=== PATIENT | male | born 1945 | race Caucasian/White ===

== ENCOUNTER 2020-07-20 09:10 | Outpatient (REF) | payer MEDICARE, SELFPAY ==
--- NOTE | 2020-07-20 11:01 | MHC.AU.P13 ---
Adult Audiological Evaluation Date of Visit: 07/20/20 Reason for Appointment: Audiological evaluation due to decrease in hearing. Mr. Pereyra reports that he has been having more difficulty hearing in background noise, such as at his water aerobics classes, in restaurants, and gymnasiums. He notes that he often doesn't hear his and his notes that the radio in his car is too loud. Does patient feel they have a hearing loss?: Yes If Yes, Which Ear?: Both Ears Has hearing been tested previously?: Yes Previous Hearing Test Results: Results not available to be reviewed today. He notes that he was told he had a high-frequency hearing loss but did not need hearing aids. Hearing Handicap Inventory HHIE SCORE: 10 Based on HHIE score, patient has: Mild to moderate perceived hearing handicap Ear History: Family History of Hearing Loss?: Yes: Father had hearing loss History of occupational noise exposure?: Yes: [employer] line [employer], exposed to jet engine noise History: History: Yes Branch: [employer] Years in : 4-8 Years Medical History: Medical History: Cancer, Measles, Mumps, Thyroid Disease Medical History: Has had Thryroid, prostate, and skin cancer, all of which were removed surgically and did not require chemo or radiation. Medication List: Atorvastatin 80 mg daily, furosemide 20 mg daily, levothyroxine 125 mg daily, metformin HCL 1000 mg twice daily, carvedilol 25 mg twice daily, amlodipine besylate 10 mg daily, Bree low dose 1 tablet daily, Flaxseed oil 1 tablet daily, one adult vitamin, citalopram HBR 10 mg daily, Entresto 49-51 mg twice daily, magnesium oxide 400 mg daily Otoscopy: Right Ear: Unremarkable Left Ear: Unremarkable Tympanometry: Right Ear: Normal Middle Ear System (Type A) Left Ear: Normal Middle Ear System (Type A) Hearing Evaluation: Transducer(s) Used: Insert Earphones, Bone Conduction Method: Conventional Audiometry Stimuli Used: Pure Tones Right Ear: Description of Hearing: Normal hearing from 250-2000 Hz, sloping to a mild to severe sensorineural hearing loss from 3277-0184 Hz. Left Ear: Description of Hearing: Normal hearing from 250-3000 Hz, sloping to a moderately severe to severe sensorineural hearing loss from 0449-0425 Hz. Speech Recognition Threshold (SRT): Method Used: Monitored Live Voice Stimuli Used: Spondee Words Right Ear: 15 dBHL Left Ear: 5 dBHL Word Discrimination: Method: Monitored Live Voice Word Lists Used: NU-6 Right Ear: 96% at 70 dBHL Left Ear: 100% at 70 dBHL QuickSIN: 5 dB mild SNR loss, presented at 70 dBHL binaurally. Recommendations: Recommendations: Audiological re-evaluation in one year. Recommendations (Other): Mr. Pereyra is considered a borderline candidate for amplification. He may notice some benefit from hearing aids, but at this point it is unlikely that he'd perceive significant benefit from use of hearing aids. Communication strategies were discussed. Diagnosis: Primary Diagnosis: H90.3 Bilateral Sensorineural Hearing Loss Services Performed: Services Performed: Comprehensive Audiological Evaluation (CPT 61913) Tympanometry (CPT 20978) Unlisted Otorhinolaryngological Service or Procedure (CPT 33856) Signature: Provider: Bay Medina, CCC-A
== END 2020-07-20 09:11 | disposition home or self-care (01) ==
LOC: HO.SH 09:10
PROVIDERS: Visit Provider Internal Medicine
DX: H90.3 Sensorineural hearing loss, bilateral (principal)
CPT/HCPCS: 92557; 92567; 92700

== ENCOUNTER → 2021-05-19 09:09 | Outpatient (REF) | payer MEDICARE, SELFPAY | LOC: HO.SL 09:09 | PROVIDERS: Visit Provider Internal Medicine | DX: G47.33 Obstructive sleep apnea (adult) (pediatric) (principal) | CPT/HCPCS: 95806 ==

== ENCOUNTER → 2021-06-01 14:59 | Outpatient (BNVA) | payer MEDICARE, SELFPAY | PROVIDERS: PCP Internal Medicine; Visit Provider Internal Medicine | DX: G47.33 Obstructive sleep apnea (adult) (pediatric) (principal); G47.34 Idiopathic sleep related nonobstructive alveolar hypoventilation; E66.9 Obesity, unspecified; Z99.89 Dependence on other enabling machines and devices | CPT/HCPCS: 99202 ==

== ENCOUNTER 2022-11-09 08:37 | Outpatient (REF) | payer OTHER, SELFPAY ==
--- NOTE | ~2022-11-09 | CT_ITS ---
EXAMINATION: CT ABDOMEN AND PELVIS WITHOUT CONTRAST CLINICAL INFORMATION: Abdominal wall hernia. COMPARISON: 11/13/2008. TECHNIQUE: Multidetector volumetric imaging was performed from the superior aspect of the liver through the pubic symphysis. Sagittal and coronal reformatted images were obtained on the technologist's workstation. This CT examination was performed using dose optimization techniques as appropriate, variously including the following: *Automated exposure control *Adjustment of mA and/or kV according to patient size (this includes techniques or standardized protocols for targeted exams where dose is matched to indication/reason for exam; i.e. extremities or head) *Use of iterative reconstruction technique DLP: 872 mGy-cm FINDINGS: LUNG BASES: No suspicious lung nodules. Mild bibasilar atelectasis or scarring.. LIVER, GALLBLADDER, AND BILIARY TREE: The liver is normal in size, shape, and attenuation. No focal hepatic lesion or biliary ductal dilatation is present. Cholelithiasis. PANCREAS: No discrete pancreatic mass. No ductal dilatation. SPLEEN: Normal. ADRENAL GLANDS: No adrenal mass. KIDNEYS AND URETERS: 1.3 x 0.9 cm 350 HU developing staghorn calculus in the lower pole of the right kidney. Two 8 mm nonobstructing 500 HU calculi in the mid right kidney. 3 mm nonobstructing calculus in the lower right kidney. There is moderate hydronephrosis which appears related to a UPJ obstruction. There is no calculus at the level of obstruction. No hydronephrosis or nephrolithiasis on the left. BLADDER: Decompressed. GASTROINTESTINAL TRACT: There is a supraumbilical midline ventral hernia containing a knuckle of small bowel without evidence of obstruction. The small bowel is normal in caliber. The appendix is normal. The large bowel is normal with moderate diverticulosis. No evidence of acute diverticulitis. ABDOMINAL WALL: Supraumbilical ventral hernia containing small bowel without evidence of obstruction. The neck of the hernia is wide measuring 4.5 cm x 2.4 cm. The hernia sac measures 6 x 2 x 5.5 cm. No inflammatory stranding. The previously seen umbilical hernia has been repaired. LYMPH NODES: There are new prominent mesenteric lymph nodes measuring up to 1.6 cm in short axis dimension. There are new retroperitoneal, external bilateral iliac, and bilateral inguinal adenopathy measuring up to 2.0 cm. VASCULAR: No aortic aneurysm. Moderate aortoiliac atherosclerosis. PELVIC VISCERA: The prostate has been removed. There is bilateral pelvic sidewall lymph node dissection. OSSEOUS STRUCTURES: Degenerative changes in the spine. No suspicious mass. CT/CT abdomen pelvis wo IV con IMPRESSION: New mesenteric, retroperitoneal, bilateral external iliac, and bilateral inguinal lymphadenopathy. Metastatic disease are leading differential diagnoses. Supraumbilical ventral hernia containing small bowel without evidence of obstruction. Repaired umbilical hernia. New moderate right hydronephrosis with particular dilatation of the renal pelvis consistent with a UPJ obstruction. No discrete obstructing lesion is seen. Multiple nonobstructing right renal calculi. Fleischner guidelines were followed.
[2022-11-09] MEDS: Barium Sulfate Oral (Berry) 450 ML ORAL.SUSP 900 ML PO (11:22)
== END 2022-11-09 08:38 | disposition home or self-care (01) ==
LOC: HO.CT 08:37
PROVIDERS: PCP Internal Medicine; Visit Provider Internal Medicine
DX: K46.9 Unspecified abdominal hernia without obstruction or gangrene (principal)
CPT/HCPCS: 74176

== ENCOUNTER → 2023-01-08 09:01 | Outpatient (BNVA) | payer OTHER, SELFPAY | PROVIDERS: PCP Internal Medicine; Visit Provider Internal Medicine ==

== ENCOUNTER 2023-11-21 10:05 | Outpatient (AMB) | payer OTHER, SELFPAY ==
--- NOTE | 2023-11-21 10:09 | A.OFFVIS_ITS ---
Vital Signs 11/21/23 10:10 Height 5 ft 9.5 in Weight 225 lb 15.581 oz BMI 32.9 BP 110/60 Blood Pressure Location Lt brachial Position Sitting Pulse 68 Pulse Source Pulse Oximeter Pulse Oximetry (%) 95 Oxygen Delivery Method Room Air Intake Visit Reasons: sleep apnea Intake Note: pt is here for yearly follow up of PANTERA and doing well, all health is doing well. Club Room Attendant Required: No Allergies No Known Allergies Allergy (Verified 11/21/23 10:22) Medication List - Last Reconciled 11/21/23 by Enrique Blankenship MD amiodarone 100 mg PO BID amlodipine 10 mg PO DAILY apixaban (Eliquis) 5 mg PO BID aspirin (Adult Aspirin Regimen) 81 mg PO DAILY atorvastatin 80 mg PO BEDTIME carvedilol 25 mg PO BID citalopram 10 mg PO DAILY flaxseed oil 1,000 mg PO DAILY furosemide (Lasix) 20 mg PO DAILY levothyroxine 112 mcg PO DAILY magnesium 400 mg PO DAILY metformin 1,000 mg PO BID multivitamin (Daily Multi-Vitamin tablet) 1 tab PO DAILY sacubitril-valsartan 49-51 mg (Entresto) 1 tab PO BID sacubitril-valsartan 49-51 mg (Entresto) 1 tab PO BID Do you need a note to return to daycare/school/sports/work: No HPI HPI sleep apnea: Details: THIS 77 YEARS OLD VERY PLEASANT GENTLEMAN IS HERE FOR HIS YEARLY FOLLOW-UP FOR SLEEP APNEA. HE USES HIS CPAP WITH NASAL PILLOWS ON A REGULAR BASIS , EVERY NIGHT. IN ADDITION TO USING AT NIGHT SOMETIME HE USES DURING THE DAYTIME FOR 1 OR 2 HOURS IF HE FEELS TIRED. HIS CPAP DEVICE IS RELATIVELY NEW AND THERE IS NO ISSUE WITH THE MACHINE. FAR HIS WEIGHT IS CONCERNED , HE HAS MADE AN EXCELLENT PROGRESS, BY RESTRICTING HIS CALORIES AND DOING EXERCI.SE DURING THE PAST 1 YEAR HE HAS LOST ABOUT 22 LBs. [facility] Medical History Nocturnal hypoxemia PANTERA on CPAP Obesity (BMI 30-39.9) Social History Patient Tobacco Use Status: Former Tobacco user Tobacco use type: Cigar Years Smoked: 10 Review of Systems Const All systems reviewed & are unremarkable except as noted in HPI and below Eyes Reports no additional complaints ENT Reports no additional complaints Card Denies chest pain, Denies irregular heart rhythm, Denies leg edema, Denies dyspnea on exertion and Reports other (Has a Defibrillator device in place ) Resp Denies cough and Denies dyspnea on exertion GI Reports no additional complaints Reports no additional complaints Musc Reports no additional complaints Skin/Breast Reports system reviewed and no additional complaints, except as documented Neuro Reports no additional complaints Psych Reports no additional complaints Physical Exam Vital Signs: Last Vital Signs Pulse 68 11/21/23 10:10 BP 110/60 11/21/23 10:10 Pulse Ox 95 11/21/23 10:10 Oxygen Delivery Method Room Air 11/21/23 10:10 BMI result Body Mass Index 32.9 Const General: comfortable, no acute distress, alert and awake Orientation/consciousness: patient oriented x3 HEENT Head: Yes normal to inspection General nose exam: No nasal polyps present and No nasal discharge present Face and sinus: Yes sinuses nontender Mouth: oropharynx normal Throat: Yes posterior oropharynx normal Eyes General: appearance normal, both eyes and all related structures Neck Neck: Yes normal visual inspection, Yes no lymphadenopathy, Yes trachea midline and Yes no JVD Thyroid: Thyroid normal Chest Chest palpation & inspection: normal inspection of the chest (Has midline scar from previous cardiac surgery), normal palpation of entire chest wall and no tenderness Resp Effort & Inspection: normal respiratory effort Auscultation: clear to auscultation bilaterally, no crackles, no rales and no wheezes Cardio Palpation: normal PMI Rate: regular rate Rhythm: regular rhythm Heart sounds: no gallops and no murmurs GI Palpation (GI): Soft to palpation, nontender, No hepatosplenomegaly present and no masses Auscultation: normal bowel sounds Back/Spine/Pelvis Thoracic/Lumbar Spine: thoracic and lumbar spine normal to inspection Skin General skin exam: no rashes or lesions noted Neuro General: patient oriented x3 and no focal motor deficits Cranial nerves: Yes CN's II-XII intact bilaterally Extrem General: Yes normal to inspection, Yes no clubbing, cyanosis or edema and Yes no calf tenderness Psych Appearance: grossly normal and well kempt Speech and movement: Normal speech and movement present Results Reviewed Results Reviewed: COMPLIANCE REPORT FOR THE LAST 30 NIGHTS IS REVIEWED. HE HAS USED 30/ NIGHTS, 10.0% AVERAGE USE IT PER NIGHT AND DAY 11 HOURS 55 MINUTES. THIS IS BECAUSE ON SOME DAYS HE USES DURING THE DAYTIME WELL. THERE IS NO AIR LEAK . RESIDUAL AHI ONLY 0.3 Assessment & Plan Assessment & Plan (1) Obesity (BMI 30-39.9): Comment: PATIENT IS GROSSLY OVERWEIGHT , BUT DURING THE PAST 1 YEAR HE HAS MADE A GOOD PROGRESS. HE HAS LOST ABOUT 22 LB ACCORDING TO HOURS SCALE.AND HIS WEIGHT HAS NOT CHANGED OVER THE PAST MANY YEARS. Code(s): E66.9 - Obesity, unspecified Category: Medical Plan: COMMENDED FOR LOSING WEIGHT AND ADVISED TO CONTINUE WATCHING HIS DIET AND CONTINUE WALKING EVERY DAY. GOAL WOULD BE TO LOSE ANOTHER 25 LB BY NEXT YEAR. (2) PANTERA on CPAP: Comment: HE HAS A LONGSTANDING HISTORY OF OBSTRUCTIVE SLEEP APNEA AND HAS BEEN DEPENDENT ON CPAP THERAPY. HE DID GET HIS NEW CPAP DEVICE WITH NASAL PILLOWS WHICH IS MUCH MORE COMFORTABLE THAN BEFORE. HE HAS NO ISSUES WITH THE CURRENT APPARATUS. HE IS WELL VERSED WITH THE USE OF CPAP. Code(s): G47.33 - Obstructive sleep apnea (adult) (pediatric); Z99.89 - Dependence on other enabling machines and devices Category: Medical Plan: CONTINUE USING IT EVERY. NIGHT REGULARLY. CALL IF .THERE IS ANY PROBLEM. * PATIENT INDICATED THAT HE LIVES IN [place], AND WOULD LIKE TO FIND A PHYSICIAN IN [place] WHO WOULD FOLLOW HIM UP FOR HIS SLEEP APNEA PROBLEM. I TOLD HIM THAT EVEN HIS PCP COULD FOLLOW HIM UP FOR THE SAME. AND IF HE NEEDS TO COME ONLY ONCE A YEAR WILL BE GLAD TO CONTINUE PROVIDING THIS CARE. Coding Level of Care Code Est Pt Level 3 (23094) Diagnoses Obesity (BMI 30-39.9) E66.9 PANTERA on CPAP G47.33; Z99.89
[2023-11-21 10:10] VITALS: BP 110/60; PULSE 68; O2SAT 95; BMI 32.9
== END 2023-11-21 10:49 | disposition home or self-care (01) ==
PROVIDERS: PCP Internal Medicine; Visit Provider Internal Medicine
DX: E66.9 Obesity, unspecified (principal); G47.33 Obstructive sleep apnea (adult) (pediatric); Z99.89 Dependence on other enabling machines and devices
CPT/HCPCS: 99213

== ENCOUNTER → 2023-11-21 10:05 | Outpatient (BNVA) | payer OTHER, SELFPAY | PROVIDERS: PCP Internal Medicine; Visit Provider Internal Medicine ==

== ENCOUNTER 2024-11-10 10:20 | Outpatient (AMB) | payer OTHER, SELFPAY ==
--- NOTE | 2024-11-10 10:35 | A.OFFVIS_ITS ---
Vital Signs 11/10/24 10:36 Height 5 ft 9.5 in Weight 228 lb 2.855 oz BMI 33.2 BP 94/52 L Blood Pressure Location Lt brachial Position Sitting Pulse 67 Pulse Source Pulse Oximeter Pulse Oximetry (%) 93 Oxygen Delivery Method Room Air Intake Visit Reasons: sleep apnea Intake Note: pt is here for follow up and states he is feeling good, and the cpap, would like a decision on inspire. [facility] Required: No Allergies No Known Allergies Allergy (Verified 11/10/24 11:02) Medication List - Last Reconciled 11/10/24 by Enrique Blankenship MD amiodarone 100 mg PO BID amlodipine 10 mg PO DAILY apixaban (Eliquis) 5 mg PO BID aspirin (Adult Aspirin Regimen) 81 mg PO DAILY atorvastatin 80 mg PO BEDTIME carvedilol 25 mg PO BID citalopram 10 mg PO DAILY flaxseed oil 1,000 mg PO DAILY furosemide (Lasix) 20 mg PO DAILY levothyroxine 112 mcg PO DAILY magnesium 400 mg PO DAILY metformin 1,000 mg PO BID multivitamin (Daily Multi-Vitamin tablet) 1 tab PO DAILY sacubitril-valsartan 49-51 mg (Entresto) 1 tab PO BID sacubitril-valsartan 49-51 mg (Entresto) 1 tab PO BID Do you need a note to return to daycare/school/sports/work: No HPI HPI sleep apnea: Details: THIS 78 YEARS OLD GENTLEMAN IS A CASE OF OBSTRUCTIVE SLEEP APNEA AND HE COMES ONCE A YEAR FOR FOLLOW-UP. HE USES HIS CPAP WITH NASAL MASK, EVERY NIGHT, AND ALSO FOR A FEW HOURS IN THE AFTERNOON BECAUSE HE DOES HAVE TO TAKE A NAP EVERY AFTERNOON. HE HAS NO ISSUES OR DIFFICULTY WITH USING THE CPAP. REMAINS ACTIVE AND REFRESHED DURING THE DAYTIME. [facility] Medical History Nocturnal hypoxemia PANTERA on CPAP Obesity (BMI 30-39.9) Social History Patient Tobacco Use Status: Former Tobacco user Tobacco use type: Cigar Years Smoked: 10 Review of Systems Const All systems reviewed & are unremarkable except as noted in HPI and below Eyes Reports no additional complaints ENT Reports no additional complaints Card Denies chest pain, Denies irregular heart rhythm, Denies leg edema, Denies dyspnea on exertion and Reports other (Has a Defibrillator device in place ) Resp Denies cough and Denies dyspnea on exertion GI Reports no additional complaints Reports no additional complaints Musc Reports no additional complaints Skin/Breast Reports system reviewed and no additional complaints, except as documented Neuro Reports no additional complaints Psych Reports no additional complaints Physical Exam Vital Signs: Last Vital Signs Pulse 67 11/10/24 10:36 BP 94/52 L 11/10/24 10:36 Pulse Ox 93 11/10/24 10:36 Oxygen Delivery Method Room Air 11/10/24 10:36 BMI result Body Mass Index 33.2 Const General: comfortable, no acute distress, alert and awake Orientation/consciousness: patient oriented x3 HEENT Head: Yes normal to inspection General nose exam: No nasal polyps present and No nasal discharge present Face and sinus: Yes sinuses nontender Mouth: oropharynx normal Throat: Yes posterior oropharynx normal Eyes General: appearance normal, both eyes and all related structures Neck Neck: Yes normal visual inspection, Yes no lymphadenopathy, Yes trachea midline and Yes no JVD Thyroid: Thyroid normal Chest Chest palpation & inspection: normal inspection of the chest (Has midline scar from previous cardiac surgery), normal palpation of entire chest wall and no tenderness Resp Effort & Inspection: normal respiratory effort Auscultation: clear to auscultation bilaterally, no crackles, no rales and no wheezes Cardio Palpation: normal PMI Rate: regular rate Rhythm: regular rhythm Heart sounds: no gallops and no murmurs GI Palpation (GI): Soft to palpation, nontender, No hepatosplenomegaly present and no masses Auscultation: normal bowel sounds Back/Spine/Pelvis Thoracic/Lumbar Spine: thoracic and lumbar spine normal to inspection Skin General skin exam: no rashes or lesions noted Neuro General: patient oriented x3 and no focal motor deficits Cranial nerves: Yes CN's II-XII intact bilaterally Extrem General: Yes normal to inspection, Yes no clubbing, cyanosis or edema and Yes no calf tenderness Psych Appearance: grossly normal and well kempt Speech and movement: Normal speech and movement present Results Reviewed Results Reviewed: COMPLIANCE REPORT REVIEWED HE USES CPAP 100% OF THE NIGHTS. AVERAGE USAGE PER DAY AND NIGHT IS 12 HOURS 46 MINUTES. NO SIGNIFICANT AIR LEAK AND RESIDUAL AHI ONLY 0.4 Assessment & Plan Assessment & Plan (1) PANTERA on CPAP: Comment: HE HAS A LONGSTANDING HISTORY OF OBSTRUCTIVE SLEEP APNEA AND HAS BEEN DEPENDENT ON CPAP THERAPY. HE DID GET HIS NEW CPAP DEVICE WITH NASAL PILLOWS WHICH IS MUCH MORE COMFORTABLE THAN BEFORE. HE HAS NO ISSUES WITH THE CURRENT APPARATUS. HE IS WELL VERSED WITH THE USE OF CPAP. Code(s): G47.33 - Obstructive sleep apnea (adult) (pediatric); Z99.89 - Dependence on other enabling machines and devices Category: Medical Plan: COMMENDED FOR GOOD COMPLIANCE. I DISCUSSED WITH HIM ABOUT THE OPTION OF INSPIRE, AND TOLD HIM THAT HE SHOULD NOT EVEN THINK ABOUT THAT. HE USES HIS CPAP WITHOUT ANY DISCOMFORT AND EFFECTIVELY. SO THIS REMAINS THE BEST TREATMENT FOR HIM. (2) Nocturnal hypoxemia: Comment: NOCTURNAL HYPOXEMIA IS SECONDARY TO SLEEP-RELATED HYPOVENTILATION, AND SEEMS TO HAVE BEEN CORRECTED WITH THE USE OF CPAP. HE DOES NOT HAVE UNDERLYING CHRONIC PULMONARY DISEASE. Code(s): G47.34 - Idiopathic sleep related nonobstructive alveolar hypoventilation Category: Medical Plan: NO NEED OF WORRYING ABOUT NOCTURNAL HYPOXEMIA AND HE DOES NOT NEED ANY O2 SUPPLEMENTATION . Coding Level of Care Code Est Pt Level 3 (39644) Diagnoses PANTERA on CPAP G47.33; Z99.89 Nocturnal hypoxemia G47.34
[2024-11-10 10:36] VITALS: BP 94/52; PULSE 67; O2SAT 93; BMI 33.2
--- OUTSIDE RECORDS SUMMARY | 2024-11-10 12:02 | XMS_ITS | Encounter Summary ---
Author Organization [facility] Address [address] [place] [address] Care Team Providers Care [employer] E[employer] Helper Name Role Phone Veronica Ordonezmana Primary Care Provider [phone] Encounter Details Date Type Department Care Team (Late st Contact Info) Description 07/24/2024 Lab Requisition [facility] - Main Lab [address] [facility] [place] [address] Becky Lutz PA [address] [place] [address] Gross hematuria Social History Tobacco Use Types Packs/Day Years Used Date Smoking Tobacco: Former Smokeless Tobacco: Former Alcohol Use Standard Drinks/Week Comments Not Currently 0 (1 standard drink = 0.6 oz pur e alcohol) Housing Instability Answer Date Recorde d Are you worried that in the next 2 months you may not have stable housing? No 05/29/2024 Food Access & Nutrition Answer Date Rec orded Do you have access to a vari ety of food including fruits and vegetables? Yes 05/29/2024 Access to Healthcare Answer Date Record ed Within the last 3 months, ho w many times did you visit the emergency department for your medical care? 1 05/29/2024 Health Literacy Answer Date Recorded How often do you need to hav e someone help you when you read instructions, pamphlets, or other written material from your doctor or pharmacy? Never 05/29/2024 Caregiver: How often do you need to have someone help you when you read instructions, pamphlets, or other written material from your doctor or pharmacy? Not on file 05/29/2024 Financial Risk Answer Date Recorded How hard is it for you to pa y for the very basics like food, housing, medical care, and air conditioning / heating? Very hard 05/29/2024 Transportation Answer Date Recorded Has the lack of transportati on kept you from meetings, work, or from getting things needed for daily living? No Has the lack of transportati on kept you from medical appointments or from getting medications? No 05/29/2024 Social Isolation Answer Date Recorded How often do you feel lonely or isolated from th ose around you? Never 05/29/2024 Food Risk Answer Date Recorded Within the past 12 months we worried whether our food would run out before we got money to buy more. Never true 05/29/2024 Within the past 12 months th e food we bought just didn't last and we didn't have money to get more. Never true 05/29/2024 Dependent Care Answer Date Recorded Do you need help finding or paying for care for your loved ones. For example, children's lunchroom supervisor or elderly care for an older adult? No 05/29/2024 Education Answer Date Recorded Do you think completing more education or training, like finishing a GED, going to college, or learning a trade, would be helpful for you? No 05/29/2024 Employment and Income Answer Date Recor ded During the last four weeks, have you been actively looking for work? No 05/29/2024 Living Situation Answer Date Recorded What is your living situation? 1 07/29/2023 Sex and Gender Information Value Date Recorded Sex Assigned at Not on file Legal Sex Male 11:46 AM EST Gender Identity Not on file Sexual Orientation Not on file documented as of this encounter Plan of Treatment Upcoming Encounters Date Type Department Care Team (Late st Contact Info) Description 11/17/2024 9:00 AM EDT Appointment Radiology Department - [place] [address] [place] [address] [place] [address] 12/01/2024 10:15 AM EDT Clinical Support Internal Medicine - [address] [address] 12/25/2024 9:30 AM EDT Office Visit Endocrinology - [place] [address] [place] [address] Lyly Harvey MD [address] [place] [address] 01/22/2025 3:00 PM EDT Office Visit [facility] Cardiology [facility] [address] [place] [id number] Stuart Kennedy MD [address] [place] [address] 05/12/2025 1:00 PM EDT Ancillary Procedure [facility] [address] [place] [id number] documented as of this encounter Procedures Procedure Name Priority Date/Time Associated Diagnosis Comments AP OUTSIDE CONSULT Routine 07/15/2024 12 :00 AM EST Gross hematuria documented in this encounter Results * Anatomic pathology outside consult (07/15/2024 12:00 AM EST) Final Diagnosis A. Urine, Voided, ([id number]): Negative for high grade urothelial carcinoma. Results of [employer] fluorescence in situ hybridization (FISH) testing: CEP3: Normal CEP7: Normal CEP17: Normal LSI 9p21: Normal Interpretation: Normal profile Controls stained appropriately. Note: The results are intended as a screening device and should be interpreted in association with other clinical and pathological findings. 08/04/2024 3:49 PM EST [facility] Clinical Information Gross hematuria R31.0 Cytology/Urine FISH (now) 08/04/2024 3:49 PM [facility] Gross Description A. Urine, Voided, ([id number]): Received 1 TP (CYTO) 1 TP (FISH) 08/04/2024 3:49 PM EST [facility] Disclaimer Unless otherwise specified, all tissue is 10% NB formalin fixed and paraffin embedded. Technical pathology services provided by [facility] at [address], [place] [address] (CLIA #[id number]/Jyothi Luna MD, Flying Ii Instructor) 08/04/2024 3:49 PM EST [facility] Tissue Urine specimen from urethra / Unknown 07/15/2024 07/24/2024 3:00 PM EST us Becky BURGER LAB PATHOLOGY ORDERABLES Cynthia l Result [facility] [address] [place] [address], documented in this encounter Visit Diagnoses Diagnosis Gross hematuria Encounter for adjustment or management of cardiac device documented in this encounter Additional Health Concerns Infection Onset Date Last Indicated Resolved Time Influenza 10/30/2024 10/30/2024 Assessment Noted Time PHQ-9 Depression Total Score: 0 05/29/20 24 4:20 PM EST documented as of this encounter Care Teams [employer] Hel[employer] Relationship Specialty Start Date End Date Isis Ordonez DO [address] [place] [address] PCP - General 02/01/23 documented as of this encounter
--- OUTSIDE RECORDS SUMMARY | 2024-11-10 12:03 | XMS_ITS | Clinical Summary ---
Author Organization [place] [address] [address] [facility] Address [address] [facility] [place] [address] Phone Care Team Providers Care Project Accountant Name Role Phone Isis Ordonez DO Primary Care Provider [phone] Allergies No known active allergies Medications cyanocobalamin (VITAMIN B-12) 1,000 mcg/mL injection Inject 1 mL into the muscle every 30 days. Active magnesium oxide (MAG-OX) 400 mg (241.3 elemental magnesium) tablet Take 1 tablet by mouth daily. Active FLAXSEED OIL ORAL Take by mouth. Active multivit-min/iron /folic acid/K (ADULTS MULTIVITAMIN ORAL) Take by mouth. Active loratadine (CLARITIN) 10 mg tablet Take 1 tablet (10 mg total) by mouth 1 (one) time each day. 4 Active Calquence, acalabrutinib mal, 100 mg tablet Take 1 tablet (100 mg total) by mouth 2 (two) times a day. 4 Active amiodarone (PACERONE) 100 mg tablet TAKE 1 TABLET BY MOUTH TWICE A DAY 180 tablet 1 4 Active atorvastatin (LIPITOR) 80 mg tablet TAKE 1 TABLET BY MOUTH EVERY DAY 90 tablet 5 Active Entresto 49-51 mg per tablet TAKE 1 TABLET BY MOUTH TWICE A DAY 180 tablet 2 5 Active levothyroxine (SYNTHROID, LEVOTHROID) 112 mcg tabletIndications :Hypothyroidism, unspecified TAKE 1 TABLET BY MOUTH EVERY DAY 90 tablet 1 5 Active Eliquis 5 mg tabletIndications :Paroxysmal atrial fibrillation ([facility] V24, [facility] V28) TAKE 1 TABLET BY MOUTH TWICE A DAY 180 tablet 2 5 Active metFORMIN (GLUCOPHAGE) 1,000 mg tablet Take 1 Tablet by mouth 2 times daily (with meals). 180 tablet 5 Active carvediloL (COREG) 12.5 mg tablet TAKE 1 TABLET BY MOUTH TWICE A DAY WITH MEALS 180 tablet 1 5 Active acetaminophen (TYLENOL) 325 mg tablet Take 1 tablet (325 mg total) by mouth if needed. 4 Active aspirin 81 mg chewable tablet Chew 1 tablet (81 mg total) 1 (one) time each day. Active citalopram (CeleXA) 10 mg tablet Take 1 tablet (10 mg total) by mouth 1 (one) time each day. 90 each 1 4 11/06/19 25 Discontinu ed(Therapy completed) furosemide (LASIX) 20 mg tabletIndications :Chronic systolic heart failure ([facility] V24, [facility] V28) TAKE 1 TABLET BY MOUTH EVERY DAY 90 tablet 3 5 10/17/19 25 Discontinu ed(Therapy completed) oseltamivir (TAMIFLU) 75 mg capsule Take 1 capsule (75 mg total) by mouth 2 (two) times a day for 5 days. 10 each 5 11/05/19 25 Hospital, Clinic, or Other Facility Administered Medication Ordered Dose Route Frequency Start Date End Date Status cyanocobalamin (VITAMIN B-12) injection 1,000 mcgIndications:Vitamin B deficiency, unspecified 1000 mcg IM Every 30 days 05/30/2024 10/31/2024 Ended Active Problems Problem Noted Date Diagnosed Date Skin ulcer, limited to break down of skin ([facility] V24, [facility] V28) 10/08/2024 Contusion of palm, right, initial encounter 09/13 Open wound of right hand, initial encounter 09/13 PANTERA on CPAP 11/23/2023 Overview (05/01/2024): Seen by [facility] in 5/ 2024 NSVT (nonsustained ventricul ar tachycardia) ([facility] V24, [facility] V28) 12/28/2022 Overview (05/01/2024): Last Assessment & Plan: Patient has a history of nonsustained ventricular tachycardia. He has had multiple episodes and subsequently underwent VT ablation with a comprehensive EP study with Dr. Johnson 01/2023. He also remains on amiodarone for suppression. We will update his labs and arrange for pulmonary function testing. Continue with amiodarone as prescribed. Amiodarone is intended for use only in patients with indicated life-threatening arrhythmias because its use is accompanied by substantial toxicity. We discussed the risks including risk for pulmonary toxicity, hepatotoxicity, risk for worsening arrhythmias and risk for thyroid impairment. We will monitor the patient for these conditions throughout treatment. Patient was also warned about the risk for photosensitivity and solar dermatitis. Patient was advised to wear sunscreen and wear protective clothing including a hat when in direct sunlight. Paroxysmal atrial fibrillation ([facility] V24, [facility] V28) 04/21/2022 Overview (05/01/2024): Last Assessment & Plan: Patient has a history of paroxysmal atrial fibrillation continues on Eliquis for anticoagulation. Chronic systolic heart failure ([facility] V24, [facility] V28) 02/01/2021 Overview (05/01/2024): Last Assessment & Plan: Patient has a history of HFrEF EF 45%. He appears euvolemic on physical exam today without clinical signs of acute heart failure. He will continue to monitor his volume status as he is off his diuretic due to low blood pressures. His last ischemic evaluation was with a left heart catheterization July 2022. GDMT includes carvedilol and Entresto. Unable to further titrate given blood pressures. Patient has MRI compatible Biotronik dual-chamber ICD in place. I've asked the patient to call if they develop worsening symptoms of heart failure such as increased shortness of breath, new or worsening cough, increased swelling in the legs or ankles, or weight gain of more than 2 pounds in one day or 4 pounds in one week. Benign essential hypertension 02/01/2021 Overview (05/01/2024): Last Assessment & Plan: Patient's blood pressure has been soft the past few weeks even after discontinuing amlodipine and diuretic. At this point, recommend reduce carvedilol to 12.5 mg orally twice daily to see if this improves his symptoms. He will continue to monitor his blood pressures at home and notify me of any changes. Familial hypercholesterolemia 02/01/2021 Overview (05/01/2024): Last Assessment & Plan: Goal LDL cholesterol is less than 70. He is due to update lipids. Continue with atorvastatin as prescribed. Coronary arteriosclerosis in agdaagux artery 02/01 Overview (05/01/2024): Last Assessment & Plan: Patient has a history of coronary artery disease status post four-vessel CABG and thoracic aortic aneurysm repair in 2012. Recent coronary angiogram as outlined above in July 2022. He denies any anginal symptoms or episodes of chest pain. He continues on medical therapy with aspirin, beta-yann and statin. Patient advised to seek emergency medical attention by calling 911 if they were to develop severe dyspnea, chest pain that did not resolve with rest or nitroglycerin, or if they were to faint. Encounters Date Type Department Care Team Description 10/31/2024 9:15 AM EDT Clinical Support Internal Medicine - [address] [place] [address] Vitamin B deficiency, unspecified (Primary Dx) 10/30/2024 1:31 PM EDT - 10/30/2024 11:59 PM EDT [facility] [address] [place], [place] [address] [address] Upper respiratory tract infection, unspecified type Discharge Disposition: Home or Self Care 10/30/2024 1:15 PM EDT Office Visit Walk-In Clinic - [address] [place] [address] Emmy Miller NP Upper respiratory tract infection, unspecified type (Primary Dx); Influenza A 10/17/2024 3:35 PM EDT Ancillary Procedure [facility] - [address] [facility] [address] [place] [address] 10/16/2024 10:00 AM EDT Consult Internal Medicine - [address] [phone] Isis Ordonez DO Cataract of both eyes, unspecified cataract type (Primary Dx); Preop cardiovascular exam; Preop general physical exam 10/10/2024 9:27 AM EDT - 10/10/2024 11:59 PM EDT [facility] [phone] Thyroid nodule Discharge Disposition: Home or Self Care 10/08/2024 11:00 AM EDT Office Visit [facility] [address] [place] [phone] Mark Sorensen PA Contusion of palm, right, initial encounter (Primary Dx); Open wound of right hand, initial encounter; Skin ulcer, limited to breakdown of skin (CMS/HCC V24, CMS/HCC V28) 10/01/2024 10:48 AM EDT - 10/01/2024 11:59 PM EDT [facility] [address] Open wound of right hand, initial encounter Discharge Disposition: Home or Self Care 10/01/2024 9:15 AM EDT Consult [facility] [address] [place] [phone] Mark Sorensen PA Contusion of palm, right, initial encounter (Primary Dx); Open wound of right hand, initial encounter; Skin ulcer, limited to breakdown of skin (CMS/HCC V24, CMS/HCC V28) 09/29/2024 10:15 AM EDT Clinical Support Internal Medicine - [address] [address] Vitamin B deficiency, unspecified (Primary Dx) 09/11/2024 1:15 PM EST Office Visit Walk-In Clinic - [address] [phone] Jagjit Mcghee PA Skin ulcer, limited to breakdown of skin ([facility] V24, [facility] V28) (Primary Dx) 09/11/2024 Telephone Walk-In [facility] - [address] [phone] Imelda Skelton [place] Wound Check 09/10/2024 Telephone Internal Medicine - [address] [phone] Isis Ordonez DO 09/01/2024 10:15 AM EST Clinical Support Internal Medicine - [address] [phone] Vitamin B deficiency, unspecified (Primary Dx) 08/27/2024 1:00 PM EST Office Visit Walk-In [facility] [address] [place] [phone] Emmy Miller NP Blood blister (Primary Dx); Traumatic bulla; Injury of right hand, initial encounter; Other specified disorders of the skin and subcutaneous tissue; Pain of right hand; Abscess 08/19/2024 1:10 PM EST Ancillary Procedure [facility] [address] [facility] [address] [place] [phone] from Last 3 Months Immunizations Name Administration Dates Next Due Influenza trivalent, 0.5mL (Fluad) 65yo and olde r 04/18/2024 Influenza, Unspecified 06/14/2023 Surgical History Surgery Date Site/Laterality Comments OTHER SURGICAL HISTORY PROCEDURE: HISTORY OTHER; COMMENT: Thyroid Resection OTHER SURGICAL HISTORY PROCEDURE: HISTORY OTHER; COMMENT: Hernia Surgery PROSTATE SURGERY PROCEDURE: HISTORICAL PROSTATE SURGERY ROTATOR CUFF REPAIR PROCEDURE: HISTORICAL ROTATOR CUFF REPAIR CORONARY ARTERY BYPASS GRAFT PROCEDURE: HISTORICAL CABG ANGIOPLASTY PROCEDURE: HISTORICAL ANGIOPLASTY W/STENT HERNIA REPAIR PROCEDURE: HI REPAIR FIRST ABDOMINAL WALL HERNIA REPLACEMENT TOTAL KNEE ONCOLOGIC 03/25/2024 Right Medical History Medical History Date Comments Sleep apnea DX:Sleep apnea Obesity DX:Obesity Hypothyroidism DX:Hypothyroidis m Depression DX:Depression Cancer of thyroid ([facility] V24, [facility] V28) DX:Cancer of thyroid (HCC) Cancer of prostate ([facility] V24, [facility] V28) DX:Cancer of prostate (HCC) Hyperlipidemia DX:Hyperlipidemi a Essential hypertension DX:Essent ial hypertension Chronic ischemic heart disease D X:Chronic ischemic heart disease Diabetes mellitus ([facility] V24, [facility] V28) CLL (chronic lymphocytic rosa kemia) ([facility] V24, [facility] V28) Family History Medical History Relation Name Comments Dementia Father Prostate cancer Father Other: Cardiovascular disease Maternal Grandmother Lung cancer Mother Stroke Paternal Grandmother Hyperlipidemia Sister 1 Hypertension Sister 2 Relation Name Status Comments Father Maternal Grandmother Mother Paternal Grandmother Sister 1 Sister 2 Social History Tobacco Use Types Packs/Day Years Used Date Smoking Tobacco: Former Cigarettes Smokeless Tobacco: Former Tobacco Cessation:Counseling Given: Not Answered Comments:Quit 35-40 years ago Alcohol Use Standard Drinks/Week Comments Not Currently [...] ed Within the last 3 months, ho becka many times did you visit the emergency [...] care for your loved ones. For example, rn child or elderly care for an older adult? [...] on file Sexual Orientation Not on file Obstetrics History Last Filed Vital Signs Vital Sign Reading Time Taken Comments Blood Pressure 106/50 10/30/2024 1:11 PM EDT Pulse 76 10/30/2024 1:11 PM EDT Temperature 36.3 ??C (97.4 ??F) 10/08/2024 10:42 AM E DT Respiratory Rate 16 10/08/2024 10:42 AM EDT Oxygen Saturation 96% 10/30/2024 1:11 PM EDT Inhaled Oxygen Concentration - - Weight 105 kg (230 lb 12.8 oz) 10/16/2024 10:13 AM EDT Height 175.3 cm (5' 9 ) 10/16/2024 10:13 AM EDT Body Mass Index 34.08 10/16/2024 10:13 AM EDT Plan of Treatment Upcoming Encounters Date Type Department Care Team (Late st Contact Info) Description 11/17/2024 9:00 AM EDT Appointment Radiology Department [address] [address] 12/01/2024 10:15 AM EDT Clinical Support Internal Medicine - [facility] [address] [place] [phone] 12/25/2024 9:30 AM EDT Office Visit Endocrinology - [address] [address] Lyly Harvey MD [address] [place] [address] 01/22/2025 3:00 PM EDT Office Visit [facility] [address] [place] [phone] Stuart Kennedy MD [address] [facility] [address] [place] [address] 05/12/2025 1:00 PM EDT Ancillary Procedure [facility] - [address] [place] [address] Health Maintenance Due Date Last Done Comments Diabetes: Annual Foot Exam 1955 DTaP,Tdap,and Td Vaccines (1 - Tdap) 12/25/1963 Pneumococcal Vaccine: 50+ Years (1 of 2 - PCV) 12/25/1963 Zoster Vaccines (1 of 2) 12/25/1963 RSV Immunization Adult Patients (1 - 1-dose 75+ series) 12/25/2019 Hepatitis C Screening 06/24/2022 Medicare Annual Wellness Visit 06/24/2022 COVID-19 Vaccine ( season) 2024 05/02/2023, 06/19/2022, 11/07/2021, Additional history exists Diabetes: Blood Sugar Control Test (HGBA1C) 12/16/2024 06/17/2024, 12/20/2023, 12/20/2023 Diabetes: Annual Urine Albumin-Creatinine Ratio (uACR) 12/19/2024 12/20/2023 Social Influencers of Health Screening 05/29/2025 05/29/2024 Diabetes: Annual GFR (Glomerular Filtration Rate) 06/17/2025 06/17/2024, 12/20/2023, 12/20/2023 Hypertension/CHF/CAD Annual BMP Blood Test 06/17/2025 06/17/2024, 12/20/2023, 12/20/2023 Diabetes: Annual Retina Eye Exam 07/04/2025 07/04/2024 Depression Screening 08/27/2025 08/27/2024 Falls Risk Assessment 10/01/2025 10/01/2024 , 07/18/2024, 07/04/2024 Cholesterol Screening (Lipid Panel) 12/19/2028 12/20/2023, 12/20/2023 Influenza Vaccine Completed 04/18/2024, , 05/02/2023, Additional history exists HIB Vaccines Aged Out No longer eligi ble based on patient's age to complete this topic HPV Vaccines Aged Out No longer eligi ble based on patient's age to complete this topic Hepatitis A Vaccines Aged Out No long er eligible based on patient's age to complete this topic Hepatitis B Vaccines Aged Out No long er eligible based on patient's age to complete this topic IPV Vaccines Aged Out No longer eligi ble based on patient's age to complete this topic MMR Vaccines Aged Out No longer eligi ble based on patient's age to complete this topic Meningococcal ACWY Vaccine Aged Out N o longer eligible based on patient's age to complete this topic Meningococcal B Vaccine Aged Out No l onger eligible based on patient's age to complete this topic RSV Immunization Patients Under 20 months Aged Out No longer eligible based on patient's age to complete this topic Varicella Vaccines Aged Out No longer eligible based on patient's age to complete this topic Goals Goal Patient Goal Type Associated Problems Recent Progress Patient-Stated? Author Wound volume breakdown reduced by X% by week 4 Care Plan Impaired Tissue No Jillian Godinez RN Wound volume breakdown reduced by X% by week 8 Care Plan Impaired Tissue No Jillian Godinez RN Wound volume breakdown reduced by X% by week 12 Care Plan Impaired Tissue No Jillian Godinez RN Quit using tobacco (cigarettes, smokeless, etc) Care Plan Education needed on impact of smoking on wound Jillian Stephen RN Reduce tobacco use (cigarettes, smokeless, etc) Care Plan Education needed on impact of smoking on wound No Jillian Godinez RN Decrease Wound Volume by X% by date (in notes) Care Plan Education needed on impact of smoking on wound No Jillian Godinez RN Patient and Caregiver Understand Wound Care Education Care Plan Education needed related to ulceration/compr omised skin integrity. No Jillain Godinez RN Medical Devices Implanted Type Area Information Technology Data Analyst Device Identifier Shelf Expiration Date Model / Serial / Lot Vlad Carson 7 Victor Manuel [id number] Implanted:03/16 (Quantity not on file) Cardiac ICD [employer] ILIVIA 7 VICTOR MANUEL / [id number] / Procedures Procedure Name Priority Date/Time Associated Diagnosis Comments XR CHEST 2 VIEWS STAT 10/30/2024 1:37 PM EDT Upper respiratory tract infection, unspecified type POC INFLUENZA A/B Routine 10/30/2024 1:3 5 PM EDT Upper respiratory tract infection, unspecified type POC RAPID [id number], MOLECULAR Routine 10/30/2024 1:34 PM EDT Upper respiratory tract infection, unspecified type CARDIAC DEVICE CHECK- REMOTE- MURJ Routine 10/17/2024 3:32 PM EDT US HEAD NECK SOFT TISSUE Routine 10/10/2024 10:24 AM EDT Thyroid nodule XR HAND 3+ VIEWS RIGHT Routine 10/01/2024 11:02 AM EDT Open wound of right hand, initial encounter DEBRIDEMENT Routine 10/01/2024 9:15 AM EDT Contusion of palm, right, initial encounter Open wound of right hand, initial encounter Skin ulcer, limited to breakdown of skin (CMS/HCC V24, CMS/HCC V28) CARDIAC DEVICE CHECK- REMOTE- MURJ Routine 08/19/2024 1:05 PM EST CREATININE, SERUM Routine 06/17/2024 9:4 9 AM EST Acquired hypothyroidism Diabetes mellitus (CMS/HCC V24, CMS/[facility] V28) HEMOGLOBIN A1C Routine 06/17/2024 9:49 AM EST Acquired hypothyroidism Diabetes mellitus ([facility] V24, [facility] V28) HM URINE ALBUMIN CREATININE RATIO Routine 12/20/2023 LIPID PANEL Routine 12/20/2023 from Last 3 Months or Most Recently Relevant to Health Maintenance Results * XR Chest 2 Views (10/30/2024 1:37 PM EDT) Anatomical Region Laterality Modality Body Radiographic Renetta ging 10/30/2024 1:37 PM EDT Impressions 10/30/2024 1:58 PM EDT No acute cardiopulmonary abnormality. -------- FINAL REPORT -------- Dictated By: Alyssa Chambers Dictated Date: 10/30/2024 13:37 ET Assigned Physician: Alyssa Chambers Reviewed and Electronically Signed By: Alyssa Chambers Signed Date: 10/30/2024 13:58 ET Workstation ID: [id number] Transcribed By: Self Edit Transcribed Date: 10/30/2024 13:37 ET Narrative 10/30/2024 1:58 PM EDT XR CHEST 2 VIEWS Reason: cough Comparison: None FINDINGS: Devices/Tubes/Lines: Left chest defibrillator in place. Lungs: Low lung volumes. ??No focal consolidation. ??No evidence of pulmonary edema. Pleura: No pleural effusion or pneumothorax. Heart/Mediastinum: Mild enlargement of the cardiac silhouette. ??Evidence of prior coronary artery surgery. Bones : Prior median sternotomy. Procedure Note Alyssa Chambers MD - 10/30/2024 XR CHEST 2 VIEWS Reason: cough Comparison: None FINDINGS: Devices/Tubes/Lines: Left chest defibrillator in place. Lungs: Low lung volumes. No focal consolidation. No evidence ofpulmonary edema. Pleura: No pleural effusion or pneumothorax. Heart/Mediastinum: Mild enlargement of the cardiac silhouette. Evidenceof prior coronary artery surgery. Bones : Prior median sternotomy. IMPRESSION: No acute cardiopulmonary abnormality. -------- FINAL REPORT -------- Dictated By: Alyssa Chambers Dictated Date: 10/30/2024 13:37 ET Assigned Physician: Alyssa Chambers Reviewed and Electronically Signed By: Alyssa Chambers Signed Date: 10/30/2024 13:58 ET Workstation ID: [id number] Transcribed By: Self Edit Transcribed Date: 10/30/2024 13:37 ET us Emmy Miller SAFE DEPOSIT ATTENDANT IMG XR PROCEDURES Final Result * (ABNORMAL) POC Influenza A/B manually resulted (10/30/2024 1:35 PM EDT) [facility] Rapid Influenza A AGN POC Positive(A) Negative Rapid Influenza B AGN POC Negative Negative Swab 10/30/2024 1:35 PM EDT us Emmy Miller SAFE DEPOSIT ATTENDANT POINT OF CARE TEST ENTER/EDIT ORDERABLES Final Result * Poc Rapid [id number], MOLECULAR (10/30/2024 1:34 PM EDT) [facility] COVID-19/SARS- COV-2 Rapid POC Negative Negative Swab Nasopharyngeal structure / Unknown 10/30/2024 1:34 PM EDT us Emmy Miller SAFE DEPOSIT ATTENDANT POINT OF CARE TEST ENTER/EDIT ORDERABLES Final Result * Cardiac device check - Remote- MURJ (10/17/2024 3:32 PM EDT) Only the most recent of2 resultswithin the time period is included. [facility] Date Time Interrogation Session CV DEVICE CHECK Type Interrogation Session RemoteScheduled CV DEVICE CHECK Implantable Pulse Generator Information Technology Data Analyst BIO CV DEVICE CHECK Implantable Pulse Generator Type ICD CV DEVICE CHECK Implantable Pulse Generator Model Ilivia 7 DR-T CV DEVICE CHECK Implantable Pulse Generator Serial Number [id number] CV DEVICE CHECK Implantable Pulse Generator Implant Date [id number] CV DEVICE CHECK Battery Remaining Percentage 32.00 CV DEVICE CHECK Battery ENGINEERING AND SCIENTIFIC PROGRAMMER Trigger 2.850 CV DEVICE CHECK Battery Status Middle of Service CV DEVICE CHECK Capacitor Charge Time 11.300 CV DEVICE CHECK Golden Statistic RA Percent Paced 98.00 CV DEVICE CHECK Golden Statistic RV Percent Paced 7.00 CV DEVICE CHECK Atrial Tachy Statistic AT/AF [place] Percent 0.00 CV DEVICE CHECK Lead Channel Setting Sensing Sensitivity 0.30 CV DEVICE CHECK Lead Channel Impedance Value 466 CV DEVICE CHECK Lead Channel Pacing Threshold Amplitude 1.100 CV DEVICE CHECK Lead Channel Pacing Threshold Pulse Width 0.4 CV DEVICE CHECK Lead Channel Setting Pacing Amplitude 2.100 CV DEVICE CHECK Lead Channel Setting Pacing Pulse Width 0.4 CV DEVICE CHECK Lead Channel Setting Sensing Sensitivity 0.80 CV DEVICE CHECK Lead Channel Impedance Value 423 CV DEVICE CHECK Lead Channel Pacing Threshold Amplitude 0.700 CV DEVICE CHECK Lead Channel Pacing Threshold Pulse Width 0.4 CV DEVICE CHECK Lead Channel Setting Pacing Amplitude 1.700 CV DEVICE CHECK Lead Channel Setting Pacing Pulse Width 0.4 CV DEVICE CHECK Golden Setting Mode (NBG Code) DDD-CLS CV DEVICE CHECK Golden Setting Lower Rate Limit 60 CV DEVICE CHECK Golden Setting AT Mode Switch Rate 160 CV DEVICE CHECK Golden Setting Maximum Tracking Rate 120 CV DEVICE CHECK Golden Setting Maximum Sensor Rate 110 CV DEVICE CHECK Golden Setting PAV Delay 220 CV DEVICE CHECK Golden Setting SLIME Delay 210 CV DEVICE CHECK Therapy Statistic Recent Shocks Delivered 0 CV DEVICE CHECK Therapy Statistic Recent Shocks Aborted 0 CV DEVICE CHECK Therapy Statistic Recent ATP Delivered 0 CV DEVICE CHECK Shock Measured Impedance 68 CV DEVICE CHECK Zone Setting Type Category Zone_ATAF CV DEVICE CHECK Rate 200 CV DEVICE CHECK Zone Setting Status Monitor CV DEVICE CHECK Zone ID 7 CV DEVICE CHECK Zone Setting Type Category VF CV DEVICE CHECK Rate 171 CV DEVICE CHECK Therapies Burst,40.0J,40.0J, 40.0J x 6 CV DEVICE CHECK Zone Setting Status On CV DEVICE CHECK Zone ID 8 CV DEVICE CHECK Zone Setting Type Category VT CV DEVICE CHECK Rate 130 CV DEVICE CHECK Zone Setting Status Monitor CV DEVICE CHECK Zone ID 9 CV DEVICE CHECK Zone Setting Type Category VT CV DEVICE CHECK Rate 150 CV DEVICE CHECK Therapies 2 x Burst,2 x Burst,40.0J,40.0J, 40.0J x 6 CV DEVICE CHECK Zone Setting Status On CV DEVICE CHECK Zone ID 10 CV DEVICE CHECK Date of Service 2024-05-17 CV DEVICE CHECK Anatomical Region Laterality Modality Device Interroga tion 05/06/2024 2:06 AM EDT Impressions 05/10/2024 3:47 PM EDT Normal Remote: No Events * Normal Device Function * Alerts or events: None * Battery: Battery is at 32%, * Sensing, impedance and thresholds reviewed * Programmed parameters reviewed * Presenting rhythm reviewed * Heart Rate Histograms reviewed * No significant changes noted Heart Failure Diagnostic: Stable * Heart failure diagnostics assessed through the device * Status: Stable * No overt HF present Narrative Procedure Note Maddi Johnson MD - 10/17/2024 IMPRESSION: Normal Remote: No Events * Normal Device Function * Alerts or events: None * Battery: Battery is at 32%, * Sensing, impedance and thresholds reviewed * Programmed parameters reviewed * Presenting rhythm reviewed * Heart Rate Histograms reviewed * No significant changes noted Heart Failure Diagnostic: Stable * Heart failure diagnostics assessed through the device * Status: Stable * No overt HF present us Maddi Johnson MD CV IMPLANTABLE CARDIAC DEV ICE PROCEDURES Final Result * US Head Neck Soft Tissue (10/10/2024 10:24 AM EDT) Anatomical Region Laterality Modality Head and Neck Ultrasound 10/10/2024 1:36 PM EDT Impressions 10/10/2024 1:54 PM EDT New thyroid tissue in the right thyroid bed with new nodules. ??Recommend fine- needle aspiration of the solid nodule. No significant interval change in left thyroid nodules. ??Recommend continued follow-up in 6 months. POS - [id number] -------- FINAL REPORT -------- Dictated By: Diana Mcclellan Dictated Date: 10/10/2024 13:36 ET Assigned Physician: Diana Mcclellan Reviewed and Electronically Signed By: Diana Mcclellan Signed Date: 10/10/2024 13:54 ET Workstation ID: [id number] Transcribed By: Self Edit Transcribed Date: 10/10/2024 13:36 ET Narrative 10/10/2024 1:54 PM EDT EXAM: Thyroid ultrasound HISTORY: Follow-up thyroid nodules. ??History of nondiagnostic FNA of 2 left thyroid nodules on 07/31/2024. ??History of a remote right hemithyroidectomy. COMPARISON: 07/24/2024 FINDINGS: Status post right hemithyroidectomy. ??There is what appears to represent thyroid tissue now visualized in the right thyroid bed which measures 2.1 x 1.4 x 0.9 cm. ??Also, 2 new nodules are present: -0.9 x 0.8 x 0.5 cm cystic nodule in the upper gland. ??Margins are smooth and wider than tall. -0.9 x 0.8 x 0.6 cm hypoechoic solid nodule in the lower gland. ??Margins are smooth, wider than tall, no echogenic foci. Left thyroid lobe is enlarged as before measuring 5.6 x 2.7 x 1.7 cm. ??Thyroid parenchyma is heterogeneous without hypervascularity on color Doppler. ??Few nodules again identified including: -2.2 x 1.6 x 1.5 cm solid hypoechoic nodule in the upper lobe is not significantly changed allowing for variance in measurement caliper placement. ??Margins are smooth, taller than wide, no definite echogenic foci. -1.0 x 1.0 x 0.6 cm hypoechoic solid nodule in the upper lobe is not significantly changed allowing for variance in measurement caliper placement. ??Margins are irregular as before, wider than tall, no definite echogenic foci. -3.0 x 2.0 x 1.4 cm hypoechoic solid nodule in the lower lobe is not significantly changed. ??Margins are lobulated, taller than wide, no echogenic foci. Procedure Note Diana Mcclellan MD - 10/10/2024 EXAM: Thyroid ultrasound HISTORY: Follow-up thyroid nodules. History of nondiagnostic FNA of 2left thyroid nodules on 07/31/2024. History of a remote righthemithyroidectomy. COMPARISON: 07/24/2024 FINDINGS: Status post right hemithyroidectomy. There is what appears to representthyroid tissue now visualized in the right thyroid bed which measures 2.1x 1.4 x 0.9 cm. Also, 2 new nodules are present: -0.9 x 0.8 x 0.5 cm cystic nodule in the upper gland. Margins are smoothand wider than tall. -0.9 x 0.8 x 0.6 cm hypoechoic solid nodule in the lower gland. Marginsare smooth, wider than tall, no echogenic foci. Left thyroid lobe is enlarged as before measuring 5.6 x 2.7 x 1.7 cm.Thyroid parenchyma is heterogeneous without hypervascularity on colorDoppler. Few nodules again identified including: -2.2 x 1.6 x 1.5 cm solid hypoechoic nodule in the upper lobe is notsignificantly changed allowing for variance in measurement caliperplacement. Margins are smooth, taller than wide, no definite echogenicfoci. -1.0 x 1.0 x 0.6 cm hypoechoic solid nodule in the upper lobe is notsignificantly changed allowing for variance in measurement caliperplacement. Margins are irregular as before, wider than tall, no definiteechogenic foci. -3.0 x 2.0 x 1.4 cm hypoechoic solid nodule in the lower lobe is notsignificantly changed. Margins are lobulated, taller than wide, noechogenic foci. IMPRESSION: New thyroid tissue in the right thyroid bed with new nodules. Recommendfine- needle aspiration of the solid nodule. No significant interval change in left thyroid nodules. Recommendcontinued follow-up in 6 months. POS - [id number] -------- FINAL REPORT -------- Dictated By: Diana Mcclellan Dictated Date: 10/10/2024 13:36 ET Assigned Physician: Diana Mcclellan Reviewed and Electronically Signed By: Diana Mcclellan Signed Date: 10/10/2024 13:54 ET Workstation ID: [id number] Transcribed By: Self Edit Transcribed Date: 10/10/2024 13:36 ET us Lyly Harvey MD IMG US PROCEDURES Final Result * XR Hand 3+ Views Right (10/01/2024 11:02 AM EDT) Anatomical Region Laterality Modality Upper Extremities, Hand [facility] 10/01/2024 2:00 PM EDT Impressions 10/01/2024 2:05 PM EDT 1. ??No radiopaque foreign body in the palmar region of the hand. 2. ??Possible linear foreign body in the 5th digit. -------- FINAL REPORT -------- Dictated By: Alyssa Chambers Dictated Date: 10/01/2024 14:00 ET Assigned Physician: Alyssa Chambers Reviewed and Electronically Signed By: Alyssa Chambers Signed Date: 10/01/2024 14:05 ET Workstation ID: [id number] Transcribed By: Self Edit Transcribed Date: 10/01/2024 14:00 ET Narrative 10/01/2024 2:05 PM EDT XR HAND 3+ VIEWS RIGHT Reason: open wound on right hand, r/o foreign body Comparison: None FINDINGS: No acute fracture. ??Normal alignment. ??Normal joint spaces. ??Exact location of the suspected foreign body is not indicated, but no radiopaque foreign body identified in the palmar region of the hand. ??However, there is a 0.2 cm linear opacity in the vicinity of the ulnar aspect of the 5th medial phalangeal head. Procedure Note Alyssa Chambers MD - 10/01/2024 XR HAND 3+ VIEWS RIGHT Reason: open wound on right hand, r/o foreign body Comparison: None FINDINGS: No acute fracture. Normal alignment. Normal joint spaces. Exactlocation of the suspected foreign body is not indicated, but no radiopaqueforeign body identified in the palmar region of the hand. However, thereis a 0.2 cm linear opacity in the vicinity of the ulnar aspect of the 5thmedial phalangeal head. IMPRESSION: 1. No radiopaque foreign body in the palmar region of the hand. 2. Possible linear foreign body in the 5th digit. -------- FINAL REPORT -------- Dictated By: Alyssa Chambers Dictated Date: 10/01/2024 14:00 ET Assigned Physician: Alyssa Chambers Reviewed and Electronically Signed By: Alyssa Chambers Signed Date: 10/01/2024 14:05 ET Workstation ID: [id number] Transcribed By: Self Edit Transcribed Date: 10/01/2024 14:00 ET Mark BURGER IMG XR PROCEDURES Final Res ult * Debridement Other (comment) Right Hand (10/01/2024 9:15 AM EDT) Narrative Vega East MD - 10/01/2024 9:15 AM EDT TAO Hernandez ? 10/01/2024 10:38 AM Debridement Other (comment) Right Hand Performed by: TAO Hernandez Authorized by: TAO Hernandez ??Associated wounds: Wound Other (comment) 10/01/24 Hand Right Consent: ??Consent obtained: ??Verbal ??Consent given by: ??Patient ??Risks discussed: Yes ?? Time out: Immediately prior to the procedure a time out was called ?? Debridement Details: ??Performed by: ??PA ??Type: selective ?Pain control: ??Lidocaine 5% ??Severity of Tissue Pre Debridement: ??Limited to breakdown of skin ??Severity of Tissue Post Debridement: ??Limited to breakdown of skin ??Time taken: ??10/01/2024 9:31 AM ??Length (cm): ??0.3 ??Width (cm): ??0.2 ??Depth (cm): ??0.1 ??Area (cm^2): ??0.06 ??Time taken: ??10/01/2024 9:32 AM ??Length (cm): ??0.3 ??Width (cm): ??0.2 ??Depth (cm): ??0.1 ??Percent Debrided (%): ??100 ??Surface Area (cm^2): ??0.06 ??Area Debrided (cm^2): ??0.06 ??Volume (cm^3): ??0.01 ??Tissue and other material debrided: dermis and epidermis ?Instrument: ??Curette ??Amount of bleeding: small ?Hemostasis obtained with: ??Silver nitrate and pressure ??Procedural pain: ??Insensate ??Post-procedural pain: ??Insensate ??Response to treatment: ??Procedure was tolerated well us Mark BURGER IN CLINIC/BEDSIDE ORDERABLE S Final Result * Creatinine (06/17/2024 9:49 AM EST) Creatinine 1.12 0.70 - 1.30 mg/dL LAB CHEMISTRY METHOD 06/17/2024 12:22 PM EST [facility] eGFR 67 >=60 mL/min/1. 73m2 LAB CHEMISTRY METHOD 06/17/2024 12:22 PM EST [facility] Comment:Calculation based on the??Chronic Kidney Disease Epidemiology Collaboration (CKD-EPI) equation refit??without adjustment for race. Blood Venous blood specimen / Unknown Venipuncture / Unknown 06/17/2024 9:49 AM EST 06/17/2024 9:49 AM EST Lyly Harvey MD LAB BLOOD ORDERABLES Final Resul t Performing Organization Address City/[facility]/ZIP Co de Phone Number [facility] [address] [place] [address], [place] [phone] * Hemoglobin A1c (06/17/2024 9:49 AM EST) [facility] Hemoglobin A1C 4.8 <6.5 % LAB CHEMISTRY METHOD 06/17/2024 12:39 PM EST [facility] Mean Bld Glu Estim. 91 mg/dL LAB CHEMISTRY METHOD 06/17/2024 12:39 PM EST [facility] Blood Venous blood specimen / Unknown Venipuncture / Unknown 06/17/2024 9:49 AM EST 06/17/2024 9:49 AM EST Lyly Harvey MD LAB BLOOD ORDERABLES Final Resul t [facility] [address] [place] [address], [place] [phone] * HM Urine Albumin Creatinine Ratio (12/20/2023) Pathologist [facility] HM Urine Albumin Creatinine Ratio Abstracted Shayna Quintero MD HEALTH MAINTENANCE Final Result * (ABNORMAL) Lipid panel (12/20/2023) LDL/HDL Ratio 5(A) 0 - 4 Triglycerides 79 0 - 150 mg/dL Cholesterol 148 0 - 200 mg/dL HDL 28(A) >=40 mg/dL LDL Cholesterol 105(A) 0 - 100 mg/dL Blood Venous blood specimen / Unknown us Historical Provider LAB BLOOD ORDERABLES Cynthia l Result from Last 3 Months or Most Recently Relevant to Health Maintenance Additional Health Concerns Active Problems Noted Date Diagnosed Date Impaired Tissue 10/01/2024 Education needed on impact of smoking on wound 0 10/01/2024 Education needed related to ulceration/compromised skin integrity. 10/01/2024 Infection Onset Date Last Indicated Influenza 10/30/2024 10/30/2024 Insurance [employer] MED[employer] Care Teams Project Accountant Relationship Specialty Start Date End Date Isis Ordonez DO [address] [place] [address] PCP - General 02/01/23
== END 2024-11-10 12:00 ==
LOC: HO.HPS 10:20
PROVIDERS: PCP Internal Medicine; Visit Provider Internal Medicine
DX: G47.33 Obstructive sleep apnea (adult) (pediatric) (principal); Z99.89 Dependence on other enabling machines and devices; G47.34 Idiopathic sleep related nonobstructive alveolar hypoventilation
CPT/HCPCS: 99213

== ENCOUNTER → 2024-11-10 10:20 | Outpatient (BNVA) | payer OTHER, SELFPAY | PROVIDERS: PCP Internal Medicine; Visit Provider Internal Medicine ==